=== PATIENT | male | born 1960 | race Caucasian/White ===

== ENCOUNTER 2019-07-25 10:05 | Inpatient (IN) ==
[2019-07-25] MEDS ORDERED: SODIUM CHLORIDE 0.9% INJ ONE (10:21)
[2019-07-25] MEDS ORDERED: TORADOL IV ONE (10:21)
[2019-07-25] MEDS ORDERED: PHENERGAN IV ONE (10:21)
[2019-07-25 10:39] LABS: BASO# 0.05 X1000 (0.0-0.2); BASO% 0.5 % (0.0-0.8); EOS# 0.07 X1000 (0.0-0.7); EOS% 0.6 % (0.0-10.0); HEMATOCRIT 45.5 % (42.0-52.0); IMM GRAN# 0.07 X1000 (0.0-0.04); IMM GRAN% 0.6 % (0.0-0.5); LYMPH# 1.68 X1000 (1.2-3.4); LYMPH% 15.1 % (20.5-51.1); MONO# 0.91 X1000 (0.11-0.59); MONO% 8.2 % (1.7-9.3); MPV 11.3 FL (7.4-10.4); NEUT# 8.32 X1000 (1.4-6.5); PLT 310 X1000 (130-400); RDW 13.1 % (11.5-14.5)
[2019-07-25] MEDS ORDERED: ZOFRAN IV ONE (11:12)
[2019-07-25] MEDS ORDERED: NS 1,000 ML IV ONE (11:12)
[2019-07-25] MEDS ORDERED: MORPHINE IV ONE (11:46)
[2019-07-25 12:18] LABS: URINE SOURCE CLEAN CATCH
[2019-07-25 12:27] LABS: BILIRUBIN URINE NEGATIVE (NEGATIVE); BLOOD URINE LARGE (NEGATIVE); COLOR YELLOW; GLUCOSE URINE 200 mg/dL (NEGATIVE); KETONE URINE TRACE mg/dL (NEGATIVE); LEUKOCYTES URINE NEGATIVE (NEGATIVE); NITRITE URINE NEGATIVE (NEGATIVE); PROTEIN URINE 100 mg/dL (NEGATIVE); SP GRAVITY URINE 1.036; TURBIDITY URINE HAZY (CLEAR); UROBILINOGEN URINE 2 mg/dL (NORMAL)
[2019-07-25 12:33] LABS: UR EPITHELIAL CELLS <10 /HPF (<10); URINE BACTERIA NEGATIVE /HPF; URINE CASTS NONE SEEN; URINE CRYSTALS NONE SEEN; URINE RBC <10 /HPF (<10); URINE SMALL ROUND CELLS NONE SEEN; URINE WBC <10 /HPF (<10); URINE YEAST NONE SEEN
[2019-07-25 12:34] LABS: AGAP 17; ALBUMIN 4.8 g/dL (3.5-5.0); ALKALINE PHOSPHATASE 75 U/L (32-122); BUN 15 mg/dL (8-22); CALCIUM 10.1 mg/dL (8.8-10.2); CHLORIDE 100 mmol/L (98-107); COSMO 285; CREATININE 0.9 mg/dL (0.7-1.2); ESTIMATED GFR > 60; GLUCOSE 217 mg/dL (70-104); GOT 47 U/L (10-34); GPT 35 U/L (10-44); SODIUM 139 mmol/L (136-145); TCO2 22 mmol/L (25-35); TOTAL PROTEIN 7.9 g/dL (6.3-8.3)
[2019-07-25] MEDS ORDERED: LOPRESSOR 10 MG in NS 50 ML IV ONE ×2 (13:28→13:48)
--- NOTE | 2019-07-25 13:28 | Diag Imaging Result Doc PS360 ---
EXAM: CT ABD/PELVIS W/IV CONT ONLY HISTORY: abd pain TECHNIQUE: CT abdomen and pelvis with intravenous contrast COMPARISON: None. FINDINGS: Prominent left pleural plaque calcifications. There is fatty infiltration of the liver. No calcified gallstones or adjacent inflammation. Normal spleen, pancreas, adrenal glands, and left kidney. There is a 5 x 6 x 8 mm stone in the mid right ureter with moderate hydronephrosis and perinephric inflammation. There are bilateral renal cysts measuring up to 3.5 cm. In AP No aortic aneurysm. Moderate atherosclerosis. Normal appendix. No abscess. No bowel obstruction. The urinary bladder is not distended. Normal prostate. IMPRESSION: 1.Right ureteral stone with hydronephrosis 2.There is fatty infiltration of the liver This exam was performed using automated exposure control, adjustment of mA or kV according to patient size, and/or use of iterative reconstruction technique. Electronically signed by John Robbins 07/25/2019 1:26 PM
[2019-07-25] MEDS ORDERED: LOPRESSOR IV ONE (13:49)
[2019-07-25] MEDS ORDERED: ZOFRAN IV PRN (13:55)
[2019-07-25] MEDS ORDERED: TYLENOL PO PRN (13:55)
[2019-07-25] MEDS: NS 1,000 ML IV SCH ×2 (14:20→21:40)
[2019-07-25] MEDS: DILAUDID IV PRN ×3 (14:32→21:40)
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
--- NOTE | 2019-07-25 15:58 | PROVIDER DOCUMENTATION ---
This chart was entered by Asia Flores Scribe, acting as scribe for Matt Florenitno CRNP. HPI-General Adult - General Chief Complaint: Flank Pain Stated Complaint: FLANK PAIN - VOMITING Time Seen by Provider: 07/25/19 10:20 Source: patient Allergies/Adverse Reactions: Patient Allergies Allergy/AdvReac Type Severity Reaction Status Date / Time No Known Allergies Allergy Verified 07/25/19 10:18 - History of Present Illness -Gen Adult Nature of Presenting Problems: 59 y/o male presents to ED with R flank pain and N/V onset this morning. Pt reports he was unable to take his HTN meds due to his symptoms. Pt is alert and oriented. Location of Pain/Injury: reports: other (R flank) Pain Radiation: reports: no radiation Quality of Pain: reports: sharp Severity: reports: moderate Onset/Duration: reports: this morning Timing: reports: still present Context/Activities at Onset: reports: none Modifying Factors: improves with: nothing Associated Symptoms: reports: nausea, vomiting, other (R flank pain) Similar Symptoms Previously?: No Recently seen or treated by another doctor?: No Review of Systems - Adult - REVIEW OF SYSTEMS - ADULT Constitutional: denies: chills, fever Eyes: reports: no symptoms reported Ears, Nose, Mouth & Throat: reports: no symptoms reported Cardiovascular: denies: chest pain, palpitations Respiratory: denies: cough, shortness of breath Gastrointestinal: reports: nausea, vomiting. denies: abdominal pain, diarrhea Genitourinary: reports: flank pain (R). denies: incontinence Musculoskeletal: reports: no symptoms reported Integumentary: reports: no symptoms reported Neurological: reports: no symptoms reported Psychiatric: reports: no symptoms reported Endocrine: reports: no symptoms reported Hematologic/Lymphatic: reports: no symptoms reported Allergic/Immunologic: reports: no symptoms reported All Other Systems: Reviewed and Negative Past History - Adult - PAST MEDICAL HISTORY-ADULT Review of Records: reports: Old Records Reviewed, Nursing Assessment Review, Medications Reviewed Major Childhood Illnesses: reports: denies history Cardiovascular: reports: HTN - PRIOR SURGERIES/PROCEDURES Surgical/Procedure History: reports: orthopedic (extremity) (R BKA) - IMMUNIZATION STATUS Childhood Immunizations: See Nurse Assessment Flu Vaccine: See Nurse Assessment - FAMILY HISTORY Family History: reviewed, not pertinent - SOCIAL HISTORY Smoking: non-smoker Substance Use: none/never Alcohol Use Frequency: never Living Situation: family Physical Exam-General - PHYSICAL EXAM-ADULT Initial Vital Signs Reviewed: Yes (bp 192/137) - CONSTITUTIONAL General Appearance: alert, moderate distress - EYES Eyes: PERRL/EOMI, pink conjunctivae - HEAD, EARS, NOSE, MOUTH & THROAT HENMT: normocephalic/atraumatic, moist mucous membranes, normal ENT inspection - NECK Neck: non-tender, full range of motion - RESPIRATORY Respiratory: chest non-tender, lungs clear, normal breath sounds - CARDIOVASCULAR Cardiovascular: normal peripheral pulses, regular rate, rhythm - GASTROINTESTINAL (ABDOMEN) Abdominal Exam: normal bowel sounds, soft, tenderness (R flank). negative: rebound, psoas sign - MUSCULOSKELETAL Back Exam: normal inspection, no CVA tenderness, no vertebral tenderness, other (R flank tenderness) Extremity: normal range of motion, non-tender - SKIN Integumentary: normal color, warm/dry - NEUROLOGIC Neurologic: grossly normal - PSYCHIATRIC Psych/Mental Status: normal mood/affect, normal thought content, normal thought process, oriented x 3 Progress - PLAN OF CARE/RESULTS Progress/Plan/Lab Results: Vital Signs - 8 hr 07/25/19 10:09 Pulse Rate 82 Respiratory Rate 20 Blood Pressure 201/120 O2 Sat by Pulse Oximetry 96 Orders Category Date Time Status AMYLASE [CHEM] Stat Lab 07/25/19 10:20 Ordered CBC WITH DIFF [HEME] Stat Lab 07/25/19 10:19 Ordered COMPREHENSIVE METABOLIC PANEL [CHEM] Stat Lab 07/25/19 10:23 Ordered LIPASE [CHEM] Stat Lab 07/25/19 10:20 Ordered URINALYSIS W/POSS RFLX CULT [URINALYSIS] Stat Lab 07/25/19 10:20 Uncollected Ketorolac [Toradol] Med 07/25/19 10:21 Discontinued 30 mg IV NOW ONE Promethazine [Phenergan] Med 07/25/19 10:21 Discontinued 25 mg IV NOW ONE Sodium Chloride 0.9% Med 07/25/19 10:21 Discontinued 10 ml INJ NOW ONE Laboratory Tests 07/25/19 07/25/19 07/25/19 10:20 10:20 10:20 WBC 11.10 H RBC 5.00 Hgb 15.0 Hct 45.5 MCV 91.0 MCH 30.0 MCHC 33.0 RDW Std Deviation 13.1 Plt Count 310 MPV 11.3 H Immature Gran % (Auto) 0.6 H Neut % (Auto) 75.0 Lymph % (Auto) 15.1 L [place] % (Auto) 8.2 Eos % (Auto) 0.6 Baso % (Auto) 0.5 Immature Gran # (Auto) 0.07 H Neut # (Auto) 8.32 H Lymph # (Auto) 1.68 [place] # (Auto) 0.91 H Eos # (Auto) 0.07 Baso # (Auto) 0.05 Sodium Potassium Chloride Carbon Dioxide Anion Gap BUN Creatinine Estimated GFR/1.73 m2 BUN/Creatinine Ratio Glucose Calculated Osmolality Calcium Total Bilirubin AST ALT Alkaline Phosphatase Total Protein Albumin Globulin Albumin/Globulin Ratio Amylase 182 Lipase 212 H Urine Source Urine Color Urine Turbidity Urine pH Ur Specific [place] Urine Protein Ur Glucose (Stick) Ur Ketones (Stick) Urine Blood Urine Nitrite Urine Bilirubin Urobilinogen Dipstick Urine Leukocytes Urine WBC (Auto) Urine RBC (Auto) U Epithel Cells (Auto) Urine Bacteria (Auto) Urine Crystals Small Round Cells Urine Casts Urine Yeast-like Cells 07/25/19 07/25/19 10:20 12:09 WBC RBC Hgb Hct MCV MCH MCHC RDW Std Deviation Plt Count MPV Immature Gran % (Auto) Neut % (Auto) Lymph % (Auto) Baca % (Auto) Eos % (Auto) Baso % (Auto) Immature Gran # (Auto) Neut # (Auto) Lymph # (Auto) [place]aca # (Auto) Eos # (Auto) Baso # (Auto) Sodium 139 Potassium 5.0 Chloride 100 Carbon Dioxide 22 L Anion Gap 17 BUN 15 Creatinine 0.9 Estimated GFR/1.73 m2 > 60 BUN/Creatinine Ratio 17 Glucose 217 H Calculated Osmolality 285 Calcium 10.1 Total Bilirubin 0.50 AST 47 H ALT 35 Alkaline Phosphatase 75 Total Protein 7.9 Albumin 4.8 Globulin 3.0 Albumin/Globulin Ratio 2.0 Amylase Lipase Urine Source CLEAN CATCH Urine Color YELLOW Urine Turbidity HAZY Urine pH 6.0 Ur Specific [place] 1.036 Urine Protein 100 A Ur Glucose (Stick) 200 A Ur Ketones (Stick) TRACE A Urine Blood LARGE A Urine Nitrite NEGATIVE Urine Bilirubin NEGATIVE Urobilinogen Dipstick 2 A Urine Leukocytes NEGATIVE Urine WBC (Auto) <10 Urine RBC (Auto) <10 U Epithel Cells (Auto) <10 Urine Bacteria (Auto) NEGATIVE Urine Crystals NONE SEEN Small Round Cells NONE SEEN Urine Casts NONE SEEN Urine Yeast-like Cells NONE SEEN Result Diagrams: 07/25/19 10:20 07/25/19 10:20 - CT/MRI 1 CT Study: Abdomen, Pelvis Impression: See EMR Report ([facility] - [address] , [address], [place] [address] [facility] - [address] [place] [address] Department of Imaging Patient: ZENA MENDEZ Date: 07/25/19#: [id number] : 1960DM Status: [facility]#: [id number] Age/Sex: 59/MRoom/Bed: Loc: P.ED Ordering Physician: Matt Florentino Family Physician: None,PCP Reason for Procedure: abd pain ___ Signed EXAM: CT ABD/PELVIS W/IV CONT ONLY HISTORY: abd pain TECHNIQUE: CT abdomen and pelvis with intravenous contrast COMPARISON: None. FINDINGS: Prominent left pleural plaque calcifications. There is fatty infiltration of the liver. No calcified gallstones or adjacent inflammation. Nor mal spleen, pancreas, adrenal glands, and left kidney. There is a 5 x 6 x 8 mm stone in the mid right ureter with moderate hydronephrosis and perinephric inflammation. There are bilateral renal cysts measuring up to 3.5 cm. In AP No aortic aneurysm. Moderate atherosclerosis. Normal appendix. No abscess. No bowel obstruction. The urinary bladder is not distended. Normal prostate. IMPRESSION: 1.Right ureteral stone with hydronephrosis 2.There is fatty infiltration of the liver This exam was performed using automated exposure control, adjustment of mA or kV according to patient size, and/or use of iterative reconstruction technique. Electronically signed by John Robbins 07/25/2019 1:26 PM 07/25/19 1326 Interpreting Physician: John Robbins MD Dictated Date/Time: 07/25/19 1323 cc: Matt Florentino; None,PCP) - CONSULTS/PCP/HOSPITALIST Notification #1 *Consult/PCP/Hospitalist*: Dr Moctezuma Time Discussed: 13:35 Reason/Comments: uretheral stone, N/V, pain, moderate hydronephrosis Consult Disposition: Admit #2 Consult: Dr Ibarra Time Discussed: 13:41 Reason/Comments: uretheral stone, N/V, pain, moderate hydronephrosis Consult Disposition: Admit (Admit to hospitalist at [facility]; Dr. Ibarra will consult.) Departure - Departure Date of Disposition Decision: 07/25/19 Time of Disposition Decision: 13:42 DIAGNOSIS: Kidney stone Hydronephrosis Qualifiers: Hydronephrosis type: unspecified Qualified Code(s): N13.30 - Unspecified hydronephrosis Disposition: ADMITTED INPATIENT 09 Certified Medical Emergency: Emergent Condition: Stable Referrals and Follow-Ups: None,PCP [Primary Care Provider] - - Critical Care Note This patient required my direct & personal management of CC.: No Attestation - Physician/ RABIA Attestation Patient care was provided by Advanced Practice Provider:: Yes Advanced Practice Provider:: Matt Florentino Advanced Practice Provider documentation review:: The Mid-level provider documentation, treatment plan and medical decision making was reviewed by the physician who agrees with all treatment and medical decision making by the [facility]. The physician spent face to face time with patient:: No Advanced Practice Provider documentation review:: Supervising physician onsite and consulted in the evaluation and care of this patient. The physician did not have a face to face encounter with the patient. This chart was documented by the indicated scribe, (Asia Flores Scribe) and accurately reflects the services I performed and decisions made by me, Matt Florentino CRNP, as attested by the provider's signature.
[2019-07-26] MEDS: DILAUDID IV PRN ×4 (00:44→10:17)
[2019-07-26 07:05] LABS: HEMOGLOBIN 13.9 g/dL (14.0-18.0); MCH 30.5 PG (27-31); MCHC 32.3 g/dL (33-37); MCV 94.5 FL (81-99); MPV 11.4 FL (7.4-10.4); RBC 4.55 XMIL (4.7-6.1); RDW 13.6 % (11.5-14.5); WBC 10.72 X1000 (4.8-10.8)
[2019-07-26 07:25] LABS: HEMOGLOBIN A1C 6.5 % (4.8-6.0)
[2019-07-26 07:39] LABS: AGAP 12; ALB/GLOB RATIO 1.9; ALBUMIN 4.1 g/dL (3.5-5.0); ALKALINE PHOSPHATASE 66 U/L (32-122); BUN 9 mg/dL (8-22); CHLORIDE 102 mmol/L (98-107); COSMO 282; CREATININE 0.8 mg/dL (0.7-1.2); ESTIMATED GFR > 60; GLUCOSE 131 mg/dL (70-104); GOT 26 U/L (10-34); GPT 24 U/L (10-44); POTASSIUM 4.5 mmol/L (3.5-5.1); SODIUM 141 mmol/L (136-145); TCO2 27 mmol/L (25-35); TOTAL BILIRUBIN 0.59 mg/dL (0.20-1.00); TOTAL PROTEIN 6.3 g/dL (6.3-8.3)
--- NOTE | 2019-07-26 10:40 | CONSULTATION ---
DATE OF CONSULTATION: 07/26/2019 ATTENDING AND REFERRING PHYSICIAN: Hospitalist. CHIEF COMPLAINT: Right flank pain. HISTORY OF PRESENT ILLNESS: This 59-year-old male developed severe right flank pain with nausea and vomiting. He was seen in the emergency room where a CT stone search revealed an approximate 5 to 6 mm stone in the right mid ureter with hydronephrosis. He states this has never occurred before. He denies any previous urologic surgery. He has no problems with urinary infections. He did have problems with blood pressure control but that was brought under control. PAST MEDICAL HISTORY: Hypertension, elevated cholesterol, diabetes, hypothyroidism, depression. CURRENT MEDICATIONS: Documented on the chart. PAST SURGICAL HISTORY: Right [id number], wisdom teeth extraction. SOCIAL HISTORY: No tobacco or alcohol use. ALLERGIES: No known drug allergies. REVIEW OF SYSTEMS: He denies any problems voiding. He has had no recent chest pains, pulmonary or bowel problems. PHYSICAL EXAMINATION: General: An obese, age apparent, normally developed, white male, oriented in all ways and cooperative. HEENT: Normal for age. Lungs: Clear. Cardiovascular: Regular rate and rhythm. Abdomen: Obese soft, nontender. No hepatosplenomegaly or masses. Normal bowel sounds. Exam: Normal male. Both testes down. Rectal: Deferred until surgery. Extremities: No clubbing, cyanosis, or edema. Neurologic: No focal deficits. LABORATORY EVALUATION: He has a white count 10.72 hemoglobin 13.9, hematocrit of 43, platelets are 263,000. Serum electrolytes are normal. BUN 9, creatinine 0.8. A CT stone search reveals a right mid ureteral stone with moderate hydronephrosis. PLAN: Cystoscopic exam, right ureteroscopy, laser lithotripsy of the stone. If able place a right double-J stent. The planned procedure, benefits versus risks, and possible complications, including, but not limited to, bleeding, infection, not being able to remove the stone, need for further stone surgery, not being able to place the double-J stent, need for percutaneous nephrostomy tube placement was discussed. He seems to understand and desires to proceed. cc: Diomedes Ibarra MD
[2019-07-26] MEDS ORDERED: VERSED ONE (12:43)
[2019-07-26] MEDS ORDERED: DIPRIVAN 1% ONE (12:44)
[2019-07-26] MEDS ORDERED: FENTANYL ONE (12:44)
--- NOTE | 2019-07-26 12:44 | PROGRESS NOTE ---
DATE: 07/26/2019 SUBJECTIVE: The patient reports feeling fine. No abdominal pain at this time. OBJECTIVE: Vital Signs: Temperature 97.9 degrees, heart rate 71, respiratory rate 16, blood pressure 153/85, O2 saturation 94% on room air. General: This is a 59-year-old male, lying in bed in no acute distress. Cardiovascular: S1, S2 heard. No murmurs, gallops, or rubs. Regular rate and rhythm. Respiratory: Clear bilaterally to auscultation. No work of breathing or using accessory muscles. Abdomen: Soft. Nontender to palpation. Bowel sounds present. No organomegaly. Extremities: No clubbing, cyanosis, or edema. Peripheral pulses present in both legs. Neurological: Patient alert and oriented x3. Moves 4 extremities. LABORATORY DATA: Reviewed. ASSESSMENT AND PLAN: 1. Right ureteral stone with hydronephrosis. The patient has been evaluated by Dr. Ibarra from Urology and they are planning to do a cystoscopy will right ureteroscopy, laser lithotripsy of the stone. We will follow recommendation. We will continue with IV fluids and IV pain medications. 2. Nausea and vomiting. That condition is resolved. We will continue with IV fluids and antiemetics. 3. Diabetes mellitus type 2. We will continue with sliding scale insulin and Accu-Chek before meals and also at bedtime. 4. Disposition. Following the lead from Urology. cc: Barney Villagomez MD
[2019-07-26] MEDS ORDERED: KEFZOL 2 GM/D5W 2 GM/50 ML IVPB ONE (13:17)
[2019-07-26] MEDS ORDERED: DITROPAN PO PRN (14:14)
[2019-07-26] MEDS ORDERED: NORCO-7.5 PO PRN (14:16)
--- NOTE | 2019-07-26 14:24 | OPERATIVE NOTE ---
PROCEDURE DATE: 07/26/2019 SURGEON: Diomedes Ibarra MD. PREOPERATIVE DIAGNOSIS: Right mid to proximal ureteral stone with hydronephrosis. POSTOPERATIVE DIAGNOSIS: Right mid to proximal ureteral stone with hydronephrosis. PROCEDURE PERFORMED: Cystoscopic examination, right ureteroscopy, laser lithotripsy of stone, basket extraction of fragments, placement of right double-J stent. ANESTHESIA: General via laryngeal mask. FINDINGS: Cystoscopic exam: Urethra - with an approximate 21-Australian meatal stricture that was dilated with the cystoscope. The remaining urethra was clear. Prostate - coapting lateral lobes, elevated bladder neck, length approximately 3.5 cm. Bladder - normal ureteral orifices bilaterally. Grade 1 trabeculations. No papillary lesions or diverticula. Right ureteroscopy reveals an approximate 7-8 mm stone in the right proximal ureter. exam reveals normal external male. Both testes are down, palpably normal. Rectal - normal sphincter tone. Prostate around 30 to 40 g, smooth and symmetric. INDICATION FOR PROCEDURE: This 59-year-old male developed severe right flank pain with nausea and vomiting. Evaluation revealed an obstructing right mid to proximal ureteral stone. DESCRIPTION OF PROCEDURE: After informed consent was obtained from the patient and him receiving IV antibiotics, he was taken the main OR cystoscopy room, placed in a supine position. General anesthesia via laryngeal mask was achieved. He was then placed in a low lithotomy position, and prepped and draped in the usual sterile fashion for cystoscopic exam. A 21-Australian cystoscope was passed through the patient's urethra, prostate, and bladder with findings noted above. A 0.035 ZIPwire was passed through the cystoscope, engaged in right ureteral orifice, advanced up into the kidney. It had to be manipulated around the obstructing stone, but finally went up. The cystoscope was removed leaving the ZIPwire in place to act as a safety wire. It was moved to the side. A 7-Australian Storz semi-rigid ureteroscope was advanced to the patient's urethra, prostate, and in the bladder. A 0.035 ZIPwire was passed through the ureteroscope and into the ureter. The ureteroscope was advanced over the Sensor wire, but beneath the ZIPwire up to the stone. The Sensor wire was removed. A 365 micron laser fiber was placed. Laser was set at 8 hertz and 8 light, and the stone was fragmented. A total of 168 joules was used. A 4-wire Nitinol basket was placed and several passes were made to remove stone fragments. These were sent to Pathology for analysis. The ureteroscope was advanced all the way up to the ureteropelvic junction area. No further stones or fragments were visualized. The ureteroscope was removed. A 6-Australian, 26 cm double-J stent was passed over the ZIPwire and up into the kidney. The renal end was verified by fluoroscopic exam, the bladder end directly visualized. Bladder was drained. Cystoscope was removed. Stent removal string securely taped to the penile shaft. Rectal exam was performed. He tolerated the procedure well. Estimated blood loss less than 1 mL. He was taken to the recovery room in good condition. cc: Diomedes Ibarra MD
[2019-07-26] MEDS ORDERED: DITROPAN ONE (14:26)
[2019-07-26] MEDS: DILAUDID ONE ×2 (14:26→14:35)
[2019-07-26] MEDS ORDERED: NORCO-7.5 ONE (14:27)
[2019-07-26 16:10] VITALS: BP 136/81
[2019-07-27] MEDS ORDERED: FLOMAX PO SCH (09:00)
--- NOTE | 2019-07-27 12:39 | DISCHARGE SUMMARY ---
ADMISSION DATE: 07/25/2019 DISCHARGE DATE: 07/26/2019 DISCHARGE DIAGNOSES: 1. Uncontrolled hypertension, improved. 2. Hydronephrosis. 3. Kidney stone. 4. Diabetes mellitus type 2. 5. Hypercholesteremia. PROCEDURES: 1. CT of abdomen and pelvis showed right ureteral stone with hydronephrosis and fatty infiltration of the liver. 2. Cystoscopy examination with right ureteroscopy and placement of right double-J stent performed by Dr. Ibarra. HOSPITAL COURSE: This is a 59-year-old male, who started having nausea and vomiting with significant abdominal pain. He was found out to have a right kidney stone, so he was admitted to the hospital. He had a procedure as mentioned above. Clinically, the patient tolerated the procedure very well and he was cleared from Urology, so he is going to be seen in the office in 1 to 2 weeks. The patient is being discharged in stable condition. DISCHARGE PHYSICAL EXAMINATION: Vital Signs: Temperature 98.7 degrees, heart rate 73, respiratory rate 16, blood pressure 123/93, O2 saturation 94% on room air. General Examination: This is a 59-year-old male, lying in bed, in no acute distress. Cardiovascular: S1, S2 heard. No murmurs, gallops, or rubs. Regular rate and rhythm. Respiratory: Clear bilaterally to auscultation. No work of breathing or use of accessory muscles. Abdomen: Soft, nontender to palpation. Bowel sounds present. No organomegaly. Extremities: No clubbing, cyanosis, or edema. Peripheral pulses present in both legs. Neurological: The patient is alert and oriented x3. Moves all 4 extremities. DISCHARGE DISPOSITION: 1. Home to self-care. 2. Follow up with Dr. Ibarra in the office in a week. cc: Barney Villagomez MD
--- NOTE | 2019-07-29 08:52 | Diag Imaging Result Doc PS360 ---
EXAM: FLUOROSCOPY CYSTO INDICATION: RIGHT STONE EXTRACTION, STENT PLACEMENT TECHNIQUE: COMPARISON: None. FINDINGS: 21 spot fluoroscopic images were provided, which were performed during right ureteral stone extraction and right ureteral stent placement by Dr. Diomedes Ibarra. On the final image, the newly placed right ureteral stent is identified in the expected position. IMPRESSION: As above. Please correlate with live fluoroscopic imaging. Electronically signed by Antoine Arias 07/29/2019 8:50 AM
== END 2019-07-26 17:41 | disposition home or self-care (01) | DRG 660 ==
LOC: P.ED 10:05 → SUATTDRO 14:03 → 4N 14:03
PROVIDERS: ATTEND Internal Medicine